=== PATIENT | female | born 1935 | race Caucasian/White ===

== ENCOUNTER 2017-11-22 05:43 | Emergency (ER) | payer SELFPAY ==
--- NOTE | 2017-11-22 05:50 | ER Document Report ---
ED General - General Stated Complaint: POSSIBLE CARDIAC ARRESS Time Seen by Provider: 11/22/17 05:49 Notes: Patient is an 82-year-old female who presents for the paramedics due to cardiac arrest. She was last seen normal by the family around 2:30 AM when they heard her coughing. After that they did not do anything further in the written check on her left 4 AM and found her pulseless and unresponsive. Paramedics were then called. Paramedics arrived she was in asystole. They gave her several rounds of epinephrine as well as bicarb. She then went into bradycardic PEA followed by several runs of V. tach and V. fib. She was defibrillated 9 times. She never regained a pulse. Every time she was defibrillated she either continue with V. tach or V. fib or went into asystole. During compressions patient has had no purposeful movement. Her pupils remained fixed and dilated. She has received a total of 14 mg of epinephrine through an IO, bicarbonate, 11 defibrillation attempts, and the liter and half normal saline. She also received 3 doses of lidocaine from the paramedics. Medications and saline flushed well through the IL and there is no swelling around the IO site appears to be functioning very appropriately. She has a history of diabetes. No fevers or infections per the family. Family says she was seen by primary care doctor 2 weeks ago and everything was going well at that time. Accu-Chek by the paramedics was over 300. - Related Data Allergies/Adverse Reactions: No Known Allergies Allergy (Verified 11/22/17 06:19) Past Medical History - Social History Smoking Status: Unknown if Ever Smoked Frequency of alcohol use: None Drug Abuse: None Family History: Reviewed & Not Pertinent Review of Systems - Review of Systems -: Yes ROS unobtainable due to patient's medical condition - Patient unable to contribute to review of systems due to condition Physical Exam - Notes Notes: General Appearance: patient intubated with ongoing chest compression. Vitals: reviewed, See vital signs table. Head: no swelling or tenderness to the head Eyes:Pupils are fixed and dilated Mouth: No decreasd moisture Throat: Intubated with filemon airway Neck: Supple, no neck tenderness, Lungs: Lungs clear with manual ventilation. good air exchange bilaterally. Heart: pulseless, V-fib and V-tach on the monitor Abdomen: No evidence of abdominal distention or rigidity. Extremities: No movement of extremities. Skin: warm, dry, appropriate color, no rash Neuro: Pupils are fixed and dilated. No purposeful movement with or without compressions. No gag reflex. Course - Re-evaluation Re-evalutation: 11/22/17 06:24 Patient has had 14 epinephrines by the paramedics. She has been coded continuously now for an hour and 20 minutes. She never had 9 defibrillation attempts without conversion of her rhythm by the paramedics. I attempted to defibrillator 2 more times as she continuously had alternating V. tach and V. fib on monitor. These attempts made no change in rhythm. Patient's are received bicarb as well as lidocaine. His pupils are fixed and dilated. She was potentially down for 2 hours. There is no evidence of cerebral function and the patient has gone through extensive efforts of trying to bring back a viable rhythm without results. Bed side ultrasound shows minimal ventricular fibrillation and patient has no palpable Carotid or femoral pulses. Any further treatment at this time is futile as it will just be repeating what has already been done. I did pronounce the patient . I did speak with the family and answer questions. Dictation of this chart was performed using voice recognition software; therefore, there may be some unintended grammatical errors. 11/22/17 06:26 Discharge - Discharge Clinical Impression: Cardiac arrest Disposition:
== END 2017-11-22 06:00 | disposition expired ==
LOC: ER 05:43
DX: I46.9 Cardiac arrest, cause unspecified (principal); R05 Cough
CPT/HCPCS: 92950; 99285